=== PATIENT | female | born 1960 | race Caucasian/White ===

== ENCOUNTER → 2021-01-05 10:59 | Outpatient (CLI) | payer BC, SELFPAY ==
[2021-01-05 12:42] LABS: Add Manual Diff / Slide Review NO; Basophils Absolute Auto 0 /uL (0-100); Eosinophils Absolute Auto 300 /uL (0-450); Eosinophils Percent Auto 5.6 % (2-4); Hematocrit 42.7 % (36-46); Hemoglobin 14.6 g/dL (12.0-16.0); Lymphocytes Absolute Auto 2100 /uL (1100-4500); Mean Corpuscular HGB Conc 34.3 % (30-36); Mean Corpuscular Hemoglobin 33.2 PG (26-34); Mean Corpuscular Volume 96.8 fL (80-100); Monocytes Absolute Auto 400 /uL (0-900); Neutrophils Absolute Auto 1900 /uL (1500-7000); Neutrophils Percent Auto 40.4 % (50-75); Platelet Count 181 X10^3/uL (150-400); Red Blood Cell Count 4.41 X10^6/uL (4.0-5.2); Red Cell Distribution Width 12.6 % (11.6-14.8); White Blood Cell Count 4.7 X10^3/uL (4.5-11.0)
[2021-01-05 13:02] LABS: Alanine Aminotransferase 17 IU/L (<35); Albumin 4.4 g/dL (3.5-5.0); Albumin Globulin Ratio 1.5 (1.0-2.8); Alkaline Phosphatase 61 U/L (38-126); Aspartate Aminotransferase 28 IU/L (14-36); Bilirubin Total 0.6 mg/dL (0.2-1.3); Blood Urea Nitrogen 10 mg/dL (7-17); Calcium 9.6 mg/dL (8.4-10.2); Carbon Dioxide 29 mmol/L (22-32); Chloride 104 mmol/L (98-107); Cholesterol 193 mg/dL (140-199); Estimated Glomerular Filt Rate > 60.0 mL/min (>60); Globulin 2.9 g/dL (1.7-4.1); Glucose 94 mg/dL (70-100); HDL Cholesterol 50 mg/dL (40-60); HEMOLYSIS < 15 (0-50); LDL Cholesterol Calculated 130 mg/dL (<100); Potassium 4.1 mmol/L (3.4-5.1); Sodium 140 mmol/L (137-145); Total Protein 7.3 g/dL (6.3-8.2); Triglycerides 65 mg/dL (35-150)
[2021-01-05 13:25] LABS: Free T3, Triiodothyronine Free 4.35 pg/mL (2.77-5.27); Free T4, Direct Thyroxine 1.01 ng/dL (0.78-2.19)
[2021-01-05 13:38] LABS: Thyroid Stimulating Hormone 2.61 uIU/mL (0.47-4.68)
[2021-01-06 05:37] LABS: Thyroid Peroxidase Antibodies 302 IU/mL (0-34)
== END ==
PROVIDERS: PCP Naturopath; Referring Provider Naturopath; Visit Provider Naturopath
DX: Z00.00 Encounter for general adult medical examination without abnormal findings (principal); E03.9 Hypothyroidism, unspecified
CPT/HCPCS: 36415; 80053; 80061; 84439; 84443; 84481; 85025; 86376

== ENCOUNTER 2021-09-13 10:39 | Emergency (ER) | payer BC, SELFPAY ==
[2021-09-13 11:00] VITALS: BP 136/84; PULSE 94; RESP 14; TEMP 36.9; O2SAT 95; BMI 25.1
[2021-09-13 11:02] VITALS: BP 136/84; PULSE 107; O2SAT 100
[2021-09-13 11:29] LABS: Add Manual Diff / Slide Review NO; Basophils Absolute Auto 100 /uL (0-100); Basophils Percent Auto 1.2 % (0-2); Eosinophils Absolute Auto 100 /uL (0-450); Eosinophils Percent Auto 2.1 % (2-4); Hematocrit 43.5 % (36-46); Hemoglobin 15.1 g/dL (12.0-16.0); Lymphocytes Absolute Auto 1600 /uL (1100-4500); Lymphocytes Percent Auto 35.2 % (25-40); Mean Corpuscular HGB Conc 34.8 % (30-36); Mean Corpuscular Hemoglobin 33.5 PG (26-34); Mean Corpuscular Volume 96.1 fL (80-100); Monocytes Absolute Auto 500 /uL (0-900); Monocytes Percent Auto 10.9 % (3-14); Neutrophils Absolute Auto 2300 /uL (1500-7000); Neutrophils Percent Auto 50.6 % (50-75); Platelet Count 197 X10^3/uL (150-400); Red Blood Cell Count 4.52 X10^6/uL (4.0-5.2); Red Cell Distribution Width 12.6 % (11.6-14.8); White Blood Cell Count 4.5 X10^3/uL (4.5-11.0)
[2021-09-13 11:59] LABS: Alanine Aminotransferase 15 IU/L (<35); Albumin 4.6 g/dL (3.5-5.0); Albumin Globulin Ratio 1.4 (1.0-2.8); Alkaline Phosphatase 58 U/L (38-126); Aspartate Aminotransferase 32 IU/L (14-36); BUN Creatinine Ratio 18.4 (6-22); Bilirubin Total 0.9 mg/dL (0.2-1.3); Blood Urea Nitrogen 14 mg/dL (7-17); Calcium 9.9 mg/dL (8.4-10.2); Carbon Dioxide 30 mmol/L (22-32); Chloride 101 mmol/L (98-107); Estimated Glomerular Filt Rate > 60.0 mL/min (>60); Globulin 3.2 g/dL (1.7-4.1); Glucose 98 mg/dL (70-100); HEMOLYSIS < 15 (0-50); Lipase 165 U/L (23-300); Potassium 3.6 mmol/L (3.4-5.1); Sodium 139 mmol/L (137-145); Total Protein 7.8 g/dL (6.3-8.2)
[2021-09-13 12:24] VITALS: BP 127/76; PULSE 89; O2SAT 100
[2021-09-13 12:25] VITALS: BP 127/76; PULSE 89; O2SAT 100
--- NOTE | 2021-09-13 12:51 | DI.US.S_ITS ---
PROCEDURE: US ABDOMEN LIMITED INDICATIONS: RULE OUT CHOLECYSTITIS TECHNIQUE: Real-time scanning was performed of the abdominal and retroperitoneal organs, with image documentation. COMPARISON: None. FINDINGS: Liver: Increased echogenicity, compatible hepatic steatosis. No mass is appreciated. Gallbladder: No gallbladder wall thickening or pericholecystic fluid. Multiple shadowing gallstones are seen. Biliary ducts: Intrahepatic bile ducts are non-dilated. Extrahepatic bile duct caliber measures 4.7 mm. Normal is 6-7 mm or less in diameter, or 10 mm or less post-cholecystectomy. Pancreas: Visualized portions of the pancreas are sonographically normal. IMPRESSION: 1. Cholelithiasis. Dictated by: Germán Baer M.D. on 09/13/2021 at 13:29 Approved by: Germán Baer M.D. on 09/13/2021 at 13:33
--- NOTE | 2021-09-13 12:52 | ED.ABDPAIN ---
HPI - Abdominal Pain <Nataliia Callejas PA-C - Last Filed: 09/13/21 15:06> General Chief Complaint: Abdominal Pain Stated Complaint: gall bladder Time Seen by Provider: 09/13/21 11:01 Source: patient Mode of arrival: Ambulatory Limitations: no limitations History of Present Illness HPI narrative: 61-year-old female with past medical history Myesha's presents to the ED with 1 week of right upper quadrant pain. Patient states she has a history of gallbladder issues, has had several episodes of colic that resolve spontaneously. Patient states she has not had any imaging hand a formal diagnosis of the issue. Patient states that 1 week ago, she experienced 10/10 abdominal colic, mainly in the right upper quadrant, sometimes radiating down the right lower quadrant and groin area, and sometimes also up to her right shoulder blade. Patient endorses some chills, nausea. Patient denies fever, chest pain, shortness of breath, vomiting, flank pain, dysuria, lightheadedness, dizziness, syncope. Patient denies hematochezia, melena. In the ED, patient reports that her pain has subsided to 0/10. Related Data Allergies Allergy/AdvReac Type Severity Reaction Status Date / Time amoxicillin Allergy Verified 09/13/21 11:15 Review of Systems <Nataliia Callejas PA-C - Last Filed: 09/13/21 15:06> Review of Systems ROS Unobtainable: All systems reviewed & are unremarkable except as noted in HPI and below Constitutional Constitutional: Reports chills, Denies fatigue, Denies fever(s), Denies frequent falls, Denies lethargy and Denies weakness Eyes Eyes: Denies change in vision, Denies eye discharge, Denies irritation and Denies loss of vision ENT Ears, Nose, Mouth, and Throat: Denies change in voice, Denies dizziness, Denies neck pain, Denies sore throat and Denies throat swelling Cardiovascular Cardiovascular: Denies chest pain, Denies irregular heart rhythm, Denies lightheadedness, Denies palpitations, Denies dyspnea, Denies dyspnea on exertion and Denies orthopnea Respiratory Respiratory: Denies cough, Denies dyspnea, Denies dyspnea on exertion and Denies wheezing Gastrointestinal Gastrointestinal: Reports abdominal pain, Denies change in bowel habits, Denies diarrhea, Reports nausea and Denies vomiting Genitourinary Genitourinary: Denies hematuria, Denies flank pain, Denies urinary incontinence and Denies urinary urgency Musculoskeletal Musculoskeletal: Denies back pain, Denies muscle weakness, Denies neck pain, Denies numbness and Denies tingling Integumentary/Breasts Skin/Breast: Denies pruritus, Denies erythema, Denies rash and Denies wounds Neurologic Neurologic: Denies behavioral changes, Denies confusion, Denies dizziness, Denies frequent falls, Denies loss of vision, Denies numbness, Denies tingling and Denies weakness Psychiatric Psychiatric: Denies anxiety, Denies behavioral changes, Denies confusion, Denies depression, Denies homicidal ideation and Denies suicidal ideation Endocrine Endocrine: Denies fatigue, Denies flushing and Denies palpitations Hematologic/Lymphatic Hematologic/Lymphatic: Denies easy bruising Allergic/Immunologic Allergic/Immunologic: Denies urticaria, Denies throat swelling and Denies wheezing Patient History <Nataliia Callejas PA-C - Last Filed: 09/13/21 15:06> Social History Smoking Status: Never smoker Smoking Status: Never smoker alcohol intake frequency: holidays/special occasions only Substance Use Type: does not use Exam <Nataliia Callejas PA-C - Last Filed: 09/13/21 15:06> Initial Vital Signs Initial Vital Signs: Vital Signs Temperature 98.4 F 09/13/21 11:00 Pulse Rate 94 H 09/13/21 11:00 Respiratory Rate 14 09/13/21 11:00 Blood Pressure 136/84 09/13/21 11:00 Pulse Oximetry 95 09/13/21 11:00 Const General: cooperative and healthy appearing [facility] Head: normal to inspection Ears: hearing grossly normal bilaterally Nose: external nose normal Mouth: oral mucosae normal Eyes General: appearance normal, both eyes and all related structures Neck Neck: normal visual inspection Chest Chest: normal inspection of the chest Resp Effort & Inspection: normal respiratory effort Auscultation: clear to auscultation bilaterally Cardio Rate: regular rate Rhythm: regular rhythm GI Palpation: soft Other: Abdomen is soft, nondistended. Right upper quadrant exquisitely tender to touch. Patient is guarding. No CVA tenderness. No rash, bruising noted. General: No CVA tenderness Skin General: no rashes or lesions noted Neuro General: patient alert, patient awake and patient oriented x3 <Umu Khalil MD - Last Filed: 09/13/21 16:22> Initial Vital Signs Initial Vital Signs: Vital Signs Temperature 98.4 F 09/13/21 11:00 Pulse Rate 94 H 09/13/21 11:00 Respiratory Rate 14 09/13/21 11:00 Blood Pressure 136/84 09/13/21 11:00 Pulse Oximetry 95 09/13/21 11:00 Course <Nataliia Callejas PA-C - Last Filed: 09/13/21 15:06> Course Course Narrative: Labs within normal limits, UA negative. Ultrasound abdomen shows cholelithiasis without cholecystitis. Patient is comfortable in the ED with 0/10 pain. Will discharge home with PCP follow-up, ED return precautions. Orders Ordered: ED Orders 09/13/21 11:10 Complete Blood Count AUTO DIFF Stat Comprehensive Metabolic Panel Stat Lactate (Lactic Acid) Stat Lipase Stat 09/13/21 11:23 EKG-12 Lead Stat 09/13/21 12:51 US abdomen limited Stat Discontinued Medications Ketorolac Tromethamine (Ketorolac 30 Mg/Ml Vial) 15 mg IV NOW ONE Stop: 09/13/21 12:52 Last Admin: 09/13/21 12:58 Dose: 15 mg Documented by: DELROY Vital Signs Vital signs: Vital Signs - 8 hr 09/13/21 11:00 09/13/21 11:02 09/13/21 12:24 Temperature 98.4 F Pulse Rate 94 H 107 H 89 Respiratory Rate 14 Blood Pressure 136/84 136/84 127/76 Pulse Oximetry 95 100 100 09/13/21 12:25 09/13/21 13:30 09/13/21 13:56 Temperature Pulse Rate 89 80 85 Respiratory Rate 16 Blood Pressure 127/76 122/72 133/75 Pulse Oximetry 100 100 100 <Umu Khalil MD - Last Filed: 09/13/21 16:22> Orders Ordered: ED Orders 09/13/21 11:10 Complete Blood Count AUTO DIFF Stat Comprehensive Metabolic Panel Stat Lactate (Lactic Acid) Stat Lipase Stat 09/13/21 11:23 EKG-12 Lead Stat 09/13/21 12:51 US abdomen limited Stat Discontinued Medications Ketorolac Tromethamine (Ketorolac 30 Mg/Ml Vial) 15 mg IV NOW ONE Stop: 09/13/21 12:52 Last Admin: 09/13/21 12:58 Dose: 15 mg Documented by: DELROY Vital Signs Vital signs: Vital Signs - 8 hr 09/13/21 11:00 09/13/21 11:02 09/13/21 12:24 Temperature 98.4 F Pulse Rate 94 H 107 H 89 Respiratory Rate 14 Blood Pressure 136/84 136/84 127/76 Pulse Oximetry 95 100 100 09/13/21 12:25 09/13/21 13:30 09/13/21 13:56 Temperature Pulse Rate 89 80 85 Respiratory Rate 16 Blood Pressure 127/76 122/72 133/75 Pulse Oximetry 100 100 100 MDM - Abdominal Pain <Nataliia Callejas PA-C - Last Filed: 09/13/21 15:06> Lab Data Lab results narrative: Labs within normal limits, UA negative Result diagrams: 09/13/21 11:10 09/13/21 11:10 Labs: Lab Results 09/13/21 09/13/21 09/13/21 Range/Units 11:10 11:10 11:10 WBC 4.5 (4.5-11.0) X10^3/uL RBC 4.52 (4.0-5.2) X10^6/uL Hgb 15.1 (12.0-16.0) g/dL Hct 43.5 (36-46) % MCV 96.1 (80-100) fL MCH 33.5 (26-34) PG MCHC 34.8 (30-36) % RDW 12.6 (11.6-14.8) % Plt Count 197 (150-400) X10^3/uL Neut % (Auto) 50.6 (50-75) % Lymph % (Auto) 35.2 (25-40) % [place] % (Auto) 10.9 (3-14) % Eos % (Auto) 2.1 (2-4) % Baso % (Auto) 1.2 (0-2) % Neut # (Auto) 2300 (8119-7564) /uL Lymph # (Auto) 1600 (5239-0461) /uL [place] # (Auto) 500 (0-900) /uL Eos # (Auto) 100 (0-450) /uL Baso # (Auto) 100 (0-100) /uL Sodium 139 (137-145) mmol/L Potassium 3.6 (3.4-5.1) mmol/L Chloride 101 (98-107) mmol/L Carbon Dioxide 30 (22-32) mmol/L BUN 14 (7-17) mg/dL Creatinine 0.76 (0.52-1.04) mg/dL Estimated GFR > 60.0 (>60) mL/min BUN/Creatinine Ratio 18.4 (6-22) Glucose 98 (70-100) mg/dL Lactate 1.2 (0.7-2.1) mmol/L Calcium 9.9 (8.4-10.2) mg/dL Total Bilirubin 0.9 (0.2-1.3) mg/dL AST 32 (14-36) IU/L ALT 15 (<35) IU/L Alkaline Phosphatase 58 (38-126) U/L Total Protein 7.8 (6.3-8.2) g/dL Albumin 4.6 (3.5-5.0) g/dL Globulin 3.2 (1.7-4.1) g/dL Albumin/Globulin Ratio 1.4 (1.0-2.8) Lipase 165 (23-300) U/L Point of care testing: Urine Dip Bedside Urine Glucose Negative Bedside Urine Bilirubin - Negative Bedside Urine Ketone +/- 5 Urine Specific [place] 1.015 Bedside Urine Occult Blood - Negative Bedside Urine pH 6.0 Bedside Urine Protein - Negative Bedside Urine Urobilinogen - Negative Bedside Urine Nitrite - Negative Bedside Urine Leukocytes - Negative Esterase Imaging Data US - abdomen: Radiologist's Impression: PROCEDURE:? US ABDOMEN LIMITED ? INDICATIONS:? RULE OUT CHOLECYSTITIS ? TECHNIQUE:? Real-time scanning was performed of the abdominal and retroperitoneal organs, with image documentation.? ? COMPARISON:? None. ? FINDINGS:? ? Liver:? Increased echogenicity, compatible hepatic steatosis.? No mass is appreciated. ? Gallbladder:? No gallbladder wall thickening or pericholecystic fluid.? Multiple shadowing gallstones are seen.? ? Biliary ducts:? Intrahepatic bile ducts are non-dilated.? Extrahepatic bile duct caliber measures 4.7 mm.? Normal is 6-7 mm or less in diameter, or 10 mm or less post-cholecystectomy.? ? Pancreas:? Visualized portions of the pancreas are sonographically normal.? ? ? IMPRESSION:? 1. Cholelithiasis. ? ? ? Dictated by: Germán Baer M.D. on 09/13/2021 at 13:29 ? ? Approved by: Germán Baer M.D. on 09/13/2021 at 13:33 ? ECG Data Interpretation: Sinus tachycardia, nonspecific ST abnormality, no axis deviation MDM Narrative Medical decision making narrative: 61-year-old female with past medical history Myesha's presents to the ED with 1 week of right upper quadrant pain. Concern for cholelithiasis versus cholecystitis versus choledocholithiasis. Will order labs, lactate, UA, ultrasound right upper quadrant. Treat pain with Toradol. Will reassess. <Umu Khalil MD - Last Filed: 09/13/21 16:22> Lab Data Labs: Lab Results 09/13/21 09/13/21 09/13/21 Range/Units 11:10 11:10 11:10 WBC 4.5 (4.5-11.0) X10^3/uL RBC 4.52 (4.0-5.2) X10^6/uL Hgb 15.1 (12.0-16.0) g/dL Hct 43.5 (36-46) % MCV 96.1 (80-100) fL MCH 33.5 (26-34) PG MCHC 34.8 (30-36) % RDW 12.6 (11.6-14.8) % Plt Count 197 (150-400) X10^3/uL Neut % (Auto) 50.6 (50-75) % Lymph % (Auto) 35.2 (25-40) % [place] % (Auto) 10.9 (3-14) % Eos % (Auto) 2.1 (2-4) % Baso % (Auto) 1.2 (0-2) % Neut # (Auto) 2300 (5591-7420) /uL Lymph # (Auto) 1600 (5054-8584) /uL [place] # (Auto) 500 (0-900) /uL Eos # (Auto) 100 (0-450) /uL Baso # (Auto) 100 (0-100) /uL Sodium 139 (137-145) mmol/L Potassium 3.6 (3.4-5.1) mmol/L Chloride 101 (98-107) mmol/L Carbon Dioxide 30 (22-32) mmol/L BUN 14 (7-17) mg/dL Creatinine 0.76 (0.52-1.04) mg/dL Estimated GFR > 60.0 (>60) mL/min BUN/Creatinine Ratio 18.4 (6-22) Glucose 98 (70-100) mg/dL Lactate 1.2 (0.7-2.1) mmol/L Calcium 9.9 (8.4-10.2) mg/dL Total Bilirubin 0.9 (0.2-1.3) mg/dL AST 32 (14-36) IU/L ALT 15 (<35) IU/L Alkaline Phosphatase 58 (38-126) U/L Total Protein 7.8 (6.3-8.2) g/dL Albumin 4.6 (3.5-5.0) g/dL Globulin 3.2 (1.7-4.1) g/dL Albumin/Globulin Ratio 1.4 (1.0-2.8) Lipase 165 (23-300) U/L Point of care testing: Urine Dip Bedside Urine Glucose Negative Bedside Urine Bilirubin - Negative Bedside Urine Ketone +/- 5 Urine Specific [place] 1.015 Bedside Urine Occult Blood - Negative Bedside Urine pH 6.0 Bedside Urine Protein - Negative Bedside Urine Urobilinogen - Negative Bedside Urine Nitrite - Negative Bedside Urine Leukocytes - Negative Esterase Discharge Plan Departure Patient Disposition: Home Clinical Impression: Cholelithiasis Instructions: DI for Gallstones Activity Restrictions/Additional Instructions: You were evaluated in the ED today for abdominal pain. Your labs were normal. Your ultrasound shows multiple gallstones in the gallbladder, however your gallbladder is not inflamed and the stones are not obstructive. You may manage the pain with ibuprofen. Return to the ED if you experience worsening symptoms, fever, chills, nausea, vomiting. You may follow-up with your PCP as soon as possible. Referrals: Odalis Wetzel ND [Primary Care Provider] - <Umu Khalil MD - Last Filed: 09/13/21 16:22> Cosign ED Attending [place] Attestation: I was immediately available in the department for consultation throughout this patient's visit. I agree with documentation as above. Umu Khalil MD
[2021-09-13] MEDS: KETOROLAC 30 MG/ML VIAL 15 MG IV (12:58)
[2021-09-13 13:29] LABS: Lactate (Lactic Acid) 1.2 mmol/L (0.7-2.1)
[2021-09-13 13:30] VITALS: BP 122/72; PULSE 80; O2SAT 100
[2021-09-13 13:56] VITALS: BP 133/75; PULSE 85; RESP 16; O2SAT 100
== END 2021-09-13 14:06 | disposition home or self-care (01) ==
PROVIDERS: Emergency Medicine; Emergency Provider Student in an Organized Health Care Education/Training Program; PCP Naturopath
DX: K80.20 Calculus of gallbladder without cholecystitis without obstruction (principal); R00.0 Tachycardia, unspecified
CPT/HCPCS: 36415; 76705; 80053; 81003; 83605; 83690; 85025; 93005; 93010; 96374; 99284; J1885

== ENCOUNTER 2022-07-27 12:59 | Emergency (ER) | payer BC, SELFPAY ==
[2022-07-27] VITALS (8 sets, daily range): BP systolic 121–140; BP diastolic 71–90; PULSE 81–108; RESP 18; TEMP 36.9; O2SAT 94–100; BMI 25.0
[2022-07-27 13:16] LABS: Add Manual Diff / Slide Review NO; Basophils Absolute Auto 0 /uL (0-100); Basophils Percent Auto 0.2 % (0-2); Eosinophils Absolute Auto 100 /uL (0-450); Eosinophils Percent Auto 1.1 % (2-4); Hematocrit 42.8 % (36-46); Hemoglobin 14.7 g/dL (12.0-16.0); Lymphocytes Absolute Auto 1900 /uL (1100-4500); Lymphocytes Percent Auto 18.3 % (25-40); Mean Corpuscular HGB Conc 34.2 % (30-36); Mean Corpuscular Hemoglobin 33.4 PG (26-34); Mean Corpuscular Volume 97.6 fL (80-100); Monocytes Absolute Auto 1000 /uL (0-900); Monocytes Percent Auto 9.8 % (3-14); Neutrophils Absolute Auto 7100 /uL (1500-7000); Neutrophils Percent Auto 70.6 % (50-75); Platelet Count 185 X10^3/uL (150-400); Red Blood Cell Count 4.39 X10^6/uL (4.0-5.2); Red Cell Distribution Width 12.8 % (11.6-14.8); White Blood Cell Count 10.1 X10^3/uL (4.5-11.0)
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
--- NOTE | 2022-07-27 13:27 | DI.US.S_ITS ---
PROCEDURE: US ABDOMEN LIMITED INDICATIONS: RUQ PAIN;KNOWN GALLSTONES TECHNIQUE: Real-time focused scanning was performed of the abdomen, with image documentation. COMPARISON: [facility], , US ABDOMEN LIMITED, 09/13/2021, 13:11. FINDINGS: Liver length of 13.5 centimeters. No definite hepatic echotexture abnormality. Multiple tiny non-obstructing gallstones present. No gallbladder wall thickening or sonographic Oseguera sign. No biliary ductal dilation demonstrated. Extrahepatic duct measures 6 millimeters. Visualized pancreas is unremarkable sonographically. IMPRESSION: Cholelithiasis without evidence of acute cholecystitis. Dictated by: Eric Cota M.D. on 07/27/2022 at 14:18 Approved by: Eric Cota M.D. on 07/27/2022 at 14:21
[2022-07-27 13:37] LABS: Alanine Aminotransferase 108 IU/L (<35); Albumin 4.3 g/dL (3.5-5.0); Albumin Globulin Ratio 1.3 (1.0-2.8); Alkaline Phosphatase 69 U/L (38-126); Aspartate Aminotransferase 281 IU/L (14-36); BUN Creatinine Ratio 19.8 (6-22); Bilirubin Total 1.5 mg/dL (0.2-1.3); Blood Urea Nitrogen 16 mg/dL (7-17); Calcium 9.1 mg/dL (8.4-10.2); Carbon Dioxide 29 mmol/L (22-32); Chloride 103 mmol/L (98-107); Creatine Kinase 42 U/L (30-135); Estimated Glomerular Filt Rate > 60 mL/min (>60); Globulin 3.3 g/dL (1.7-4.1); Glucose 107 mg/dL (80-110); Lipase 225 U/L (23-300); Potassium 4.3 mmol/L (3.4-5.1); Sodium 138 mmol/L (137-145); Total Protein 7.6 g/dL (6.3-8.2)
[2022-07-27 13:38] LABS: HEMOLYSIS 103 (0-50); Lactate (Lactic Acid) 1.1 mmol/L (0.7-2.1)
[2022-07-27 13:43] LABS: Troponin I < 0.012 ng/mL (0.01-0.034)
[2022-07-27] MEDS: SODIUM CHLORIDE 0.9% 1,000 ML 150 ML IV (13:43)
[2022-07-27 16:16] LABS: Alanine Aminotransferase 174 IU/L (<35); Albumin 4.2 g/dL (3.5-5.0); Albumin Globulin Ratio 1.4 (1.0-2.8); Alkaline Phosphatase 77 U/L (38-126); Aspartate Aminotransferase 403 IU/L (14-36); BUN Creatinine Ratio 17.7 (6-22); Bilirubin Total 0.7 mg/dL (0.2-1.3); Blood Urea Nitrogen 14 mg/dL (7-17); Calcium 9.1 mg/dL (8.4-10.2); Carbon Dioxide 27 mmol/L (22-32); Chloride 104 mmol/L (98-107); Estimated Glomerular Filt Rate > 60 mL/min (>60); Globulin 3.1 g/dL (1.7-4.1); Glucose 113 mg/dL (80-110); HEMOLYSIS 18 (0-50); Potassium 3.8 mmol/L (3.4-5.1); Sodium 139 mmol/L (137-145); Total Protein 7.3 g/dL (6.3-8.2)
== END 2022-07-27 17:05 | disposition home or self-care (01) ==
PROVIDERS: Emergency Provider Emergency Medicine; PCP Naturopath
DX: K80.20 Calculus of gallbladder without cholecystitis without obstruction (principal); R10.13 Epigastric pain
CPT/HCPCS: 36415; 76705; 80053; 82550; 83605; 83690; 84484; 85025; 93005; 93010; 99284

== ENCOUNTER → 2022-11-02 10:42 | Outpatient (CLI) | payer BC, SELFPAY ==
[2022-11-02 11:23] LABS: Add Manual Diff / Slide Review NO; Basophils Absolute Auto 0 /uL (0-100); Basophils Percent Auto 0.7 % (0-2); Eosinophils Absolute Auto 200 /uL (0-450); Eosinophils Percent Auto 3.1 % (2-4); Hematocrit 41.5 % (36-46); Hemoglobin 14.3 g/dL (12.0-16.0); Lymphocytes Absolute Auto 1800 /uL (1100-4500); Lymphocytes Percent Auto 34.9 % (25-40); Mean Corpuscular HGB Conc 34.5 % (30-36); Mean Corpuscular Hemoglobin 33.9 PG (26-34); Mean Corpuscular Volume 98.4 fL (80-100); Monocytes Absolute Auto 400 /uL (0-900); Monocytes Percent Auto 8.5 % (3-14); Neutrophils Absolute Auto 2700 /uL (1500-7000); Neutrophils Percent Auto 52.8 % (50-75); Platelet Count 169 X10^3/uL (150-400); Red Blood Cell Count 4.22 X10^6/uL (4.0-5.2); Red Cell Distribution Width 12.5 % (11.6-14.8); White Blood Cell Count 5.1 X10^3/uL (4.5-11.0)
[2022-11-02 11:33] LABS: Alanine Aminotransferase 35 IU/L (<35); Albumin 4.1 g/dL (3.5-5.0); Albumin Globulin Ratio 1.4 (1.0-2.8); Alkaline Phosphatase 65 U/L (38-126); Aspartate Aminotransferase 27 IU/L (14-36); Bilirubin Total 0.6 mg/dL (0.2-1.3); Blood Urea Nitrogen 8 mg/dL (7-17); Calcium 9.1 mg/dL (8.4-10.2); Carbon Dioxide 29 mmol/L (22-32); Chloride 101 mmol/L (98-107); Estimated Glomerular Filt Rate > 60 mL/min (>60); Glucose 94 mg/dL (80-110); HEMOLYSIS < 15 (0-50); Lipase 396 U/L (23-300); Sodium 139 mmol/L (137-145); Total Protein 7.1 g/dL (6.3-8.2)
== END ==
PROVIDERS: PCP Naturopath; Referring Provider Surgery; Visit Provider Surgery
DX: K80.20 Calculus of gallbladder without cholecystitis without obstruction (principal); K82.9 Disease of gallbladder, unspecified
CPT/HCPCS: 36415; 80053; 83690; 85025; 99213

== ENCOUNTER → 2023-11-08 14:02 | Outpatient (CLI) | payer BC, SELFPAY ==
[2023-11-08 14:29] LABS: Add Manual Diff / Slide Review NO; Basophils Absolute Auto 100 /uL (0-100); Eosinophils Absolute Auto 200 /uL (0-450); Eosinophils Percent Auto 3.2 % (2-4); Hematocrit 42.3 % (36-46); Hemoglobin 14.6 g/dL (12.0-16.0); Lymphocytes Absolute Auto 2200 /uL (1100-4500); Lymphocytes Percent Auto 40.2 % (25-40); Mean Corpuscular HGB Conc 34.7 % (30-36); Mean Corpuscular Hemoglobin 33.6 PG (26-34); Mean Corpuscular Volume 97.1 fL (80-100); Monocytes Absolute Auto 400 /uL (0-900); Monocytes Percent Auto 7.3 % (3-14); Neutrophils Absolute Auto 2700 /uL (1500-7000); Neutrophils Percent Auto 48.3 % (50-75); Platelet Count 198 X10^3/uL (150-400); Red Blood Cell Count 4.35 X10^6/uL (4.0-5.2); Red Cell Distribution Width 12.4 % (11.6-14.8); White Blood Cell Count 5.5 X10^3/uL (4.5-11.0)
[2023-11-08 14:53] LABS: Alanine Aminotransferase 18 IU/L (<35); Albumin 4.1 g/dL (3.5-5.0); Albumin Globulin Ratio 1.2 (1.0-2.8); Alkaline Phosphatase 62 U/L (38-126); Aspartate Aminotransferase 28 IU/L (14-36); BUN Creatinine Ratio 16.3 (6-22); Bilirubin Total 0.9 mg/dL (0.2-1.3); Blood Urea Nitrogen 13 mg/dL (7-17); Calcium 9.1 mg/dL (8.4-10.2); Carbon Dioxide 28 mmol/L (22-32); Chloride 104 mmol/L (98-107); Estimated Glomerular Filt Rate > 60 mL/min (>60); Globulin 3.3 g/dL (1.7-4.1); Glucose 96 mg/dL (80-110); HEMOLYSIS < 15 (0-50); Lipase 131 U/L (23-300); Potassium 3.9 mmol/L (3.4-5.1); Sodium 138 mmol/L (137-145); Total Protein 7.4 g/dL (6.3-8.2)
== END ==
PROVIDERS: PCP Naturopath; Referring Provider Surgery; Visit Provider Surgery
DX: K80.20 Calculus of gallbladder without cholecystitis without obstruction (principal)
CPT/HCPCS: 36415; 80053; 83690; 85025

== ENCOUNTER → 2024-02-13 13:52 | Outpatient (CLI) | payer BC, SELFPAY ==
[2024-02-13 14:51] LABS: Alanine Aminotransferase 18 IU/L (<35); Albumin 4.3 g/dL (3.5-5.0); Albumin Globulin Ratio 1.7 (1.0-2.8); Alkaline Phosphatase 53 U/L (38-126); Aspartate Aminotransferase 29 IU/L (14-36); BUN Creatinine Ratio 12.6 (6-22); Bilirubin Total 0.6 mg/dL (0.2-1.3); Blood Urea Nitrogen 11 mg/dL (7-17); Calcium 9.1 mg/dL (8.4-10.2); Carbon Dioxide 29 mmol/L (22-32); Chloride 106 mmol/L (98-107); Cholesterol 195 mg/dL (140-199); Estimated Glomerular Filt Rate > 60 mL/min (>60); Globulin 2.6 g/dL (1.7-4.1); Glucose 94 mg/dL (80-110); HDL Cholesterol 55 mg/dL (40-60); HEMOLYSIS < 15 (0-50); LDL Cholesterol Calculated 119 mg/dL (<100); Sodium 139 mmol/L (137-145); Total Protein 6.9 g/dL (6.3-8.2); Triglycerides 105 mg/dL (35-150)
[2024-02-13 15:07] LABS: Free T3, Triiodothyronine Free 3.96 pg/mL (2.77-5.27); Free T4, Direct Thyroxine 0.94 ng/dL (0.78-2.19)
[2024-02-13 15:20] LABS: Thyroid Stimulating Hormone 2.08 uIU/mL (0.47-4.68)
== END ==
PROVIDERS: PCP Naturopath; Referring Provider Naturopath; Visit Provider Naturopath
DX: Z00.00 Encounter for general adult medical examination without abnormal findings (principal); E06.3 Autoimmune thyroiditis
CPT/HCPCS: 36415; 80053; 80061; 84439; 84443; 84481; 86376

== ENCOUNTER 2025-09-04 13:31 | Emergency (ER) | payer BC, SELFPAY ==
[2025-09-04 13:52] VITALS: BP 136/77; PULSE 98; RESP 15; TEMP 36.8; O2SAT 99; BMI 25.7
--- NOTE | 2025-09-04 14:24 | DI.US.S_ITS ---
PROCEDURE: US ABDOMEN LIMITED INDICATIONS: RUQ PAIN; KNOWN GALLSTONES TECHNIQUE: Real-time focused scanning was performed of the abdomen, with image documentation. COMPARISON: (Prior imaging is not available for review from the archive at the time of this dictation.) FINDINGS: The liver is normal in size and demonstrates no suspicious lesions. Numerous tiny mobile gallstones are seen. The gallbladder wall is not thickened, measuring 3 mm or less. No specific pericholecystic fluid is seen. The sonographic Oseguera sign is negative. There is no biliary dilatation, the common bile duct measures 5 mm. No significant pancreatic abnormality is seen on these images. IMPRESSION: Numerous tiny mobile gallstones are seen. No additional sonographic signs of cholecystitis are seen. No biliary dilatation. Dictated by: Omar Loyola M.D. on 09/04/2025 at 14:49 Approved by: Omar Loyola M.D. on 09/04/2025 at 14:51
[2025-09-04 15:30] VITALS: BP 112/61; PULSE 93; RESP 16; O2SAT 99
--- NOTE | 2025-09-04 15:53 | ED.ABDPAIN ---
HPI - Abdominal Pain General Chief Complaint: Abdominal Pain Stated Complaint: possible gall stone Time Seen by Provider: 09/04/25 14:14 Source: patient Mode of arrival: Ambulatory History of Present Illness HPI narrative: Patient is a 65-year-old female with 2 episodes of severe abdominal pain and vomiting that began this week. Past medical history significant for cholelithiasis, she has been unable to schedule surgery. She reports she has felt similar pain in the past and describes it as colicky, she believes that she has passed the stone and her symptoms has largely resolved today however given that her symptoms had persisted for a week she presented to the ER for evaluation. Currently she is not in any pain, no fevers, chills, no recent nausea or vomiting. No junior colored stool. Related Data Home Medications ?Medication ?Instructions ?Recorded ?Confirmed Bacillus coagulans 800 million 1 cell PO DAILY 11/02/22 11/08/23 cell tablet (Digestive Advantage Probiotics-Prebiotic) lecithin 1,200 mg capsule 1,200 mg PO DAILY 11/02/22 11/08/23 quercetin 500 mg capsule mg PO 11/08/23 11/08/23 vitamin E mixed 400 unit capsule unit PO 11/08/23 11/08/23 Allergies Allergy/AdvReac Type Severity Reaction Status Date / Time amoxicillin Allergy Rash Verified 11/08/23 13:08 Penicillins Allergy Rash, Hives Verified 11/08/23 13:08 Review of Systems Review of Systems Narrative: See HPI. Patient History Medical History No blood products Headache, migraine Delia infection Myesha's disease Surgical History No history of previous surgery Social History household members: spouse alcohol intake: current alcohol intake frequency: 0-2 drinks per day Exam Initial Vital Signs Initial Vital Signs: Vital Signs Temperature 98.3 F 09/04/25 13:52 Pulse Rate 98 H 09/04/25 13:52 Respiratory Rate 15 09/04/25 13:52 Blood Pressure 136/77 09/04/25 13:52 Pulse Oximetry 99 09/04/25 13:52 Oxygen Delivery Method Room Air 09/04/25 13:52 Vitals reviewed and within normal range. Const Other: Well-developed, well-nourished in no acute distress. Resp Other: Normal work of effort. Auscultation normal in all lung mcnair. Cardio Other: Regular rate without any murmurs, rubs, or gallops. GI Other: Soft, nondistended, nontender palpation in all quadrants to include right upper quadrant. No CVA tenderness bilaterally. Skin Other: No rashes. Extrem Other: No peripheral edema. Course Orders Ordered: ED Orders 09/04/25 14:24 US abdomen limited Stat CBC Auto Diff [Complete Blood Count AUTO DIFF] Stat CMP [Comprehensive Metabolic Panel] Stat Reevaluation(s) Reevaluation #1: [id number] discussed results with patient Vital Signs Vital signs: Vital Signs - 8 hr 09/04/25 13:52 09/04/25 15:30 09/04/25 16:00 Temperature 98.3 F Pulse Rate 98 H 93 H 83 Respiratory Rate 15 16 16 Blood Pressure 136/77 112/61 117/75 Pulse Oximetry 99 99 98 Oxygen Delivery Method Room Air 09/04/25 16:30 Temperature Pulse Rate 89 Respiratory Rate 17 Blood Pressure 114/78 Pulse Oximetry 97 Oxygen Delivery Method MDM - Abdominal Pain Medical Records Attestation: I reviewed the patient's medical records. Lab Data 09/04/25 16:51 09/04/25 16:51 Labs: Lab Results 09/04/25 Range/Units 16:51 WBC 13.1 H (4.5-11.0) X10^3/uL RBC 4.41 (4.0-5.2) X10^6/uL Hgb 15.2 (12.0-16.0) g/dL Hct 43.2 (36-46) % MCV 98.0 (80-100) fL MCH 34.5 H (26-34) PG MCHC 35.2 (30-36) % RDW 12.4 (11.6-14.8) % Plt Count 190 (150-400) X10^3/uL Neut % (Auto) 77.3 H (50-75) % Lymph % (Auto) 12.8 L (25-40) % Dare % (Auto) 8.8 (3-14) % Eos % (Auto) 0.9 L (2-4) % Baso % (Auto) 0.2 (0-2) % Neut # (Auto) 24601 H (5470-6855) /uL Lymph # (Auto) 1700 (1448-8728) /uL Dare # (Auto) 1100 H (0-900) /uL Eos # (Auto) 100 (0-450) /uL Baso # (Auto) 0 (0-100) /uL Sodium 137 (137-145) mmol/L Potassium 3.9 (3.4-5.1) mmol/L Chloride 98 (98-107) mmol/L Carbon Dioxide 27 (22-32) mmol/L BUN 9 (7-17) mg/dL Creatinine 0.66 (0.52-1.04) mg/dL Estimated GFR > 60 (>60) mL/min BUN/Creatinine Ratio 13.6 (6-22) Glucose 109 H (70-99) mg/dL Calcium 9.3 (8.4-10.2) mg/dL Total Bilirubin 1.4 H (0.2-1.3) mg/dL AST 32 (14-36) IU/L ALT 24 (<35) IU/L Alkaline Phosphatase 89 (38-126) U/L Total Protein 8.0 (6.3-8.2) g/dL Albumin 4.4 (3.5-5.0) g/dL Globulin 3.6 (1.7-4.1) g/dL Albumin/Globulin Ratio 1.2 (1.0-2.8) Imaging Data US - abdomen: My Impression: Gallstones noted at the body of the gallbladder. No stones noted at the neck. No gallbladder wall thickening, no pericholecystic fluid, common bile duct 5 mm. Radiologist's Impression: FINDINGS: The liver is normal in size and demonstrates no suspicious lesions. Numerous tiny mobile gallstones are seen. The gallbladder wall is not thickened, measuring 3 mm or less. No specific pericholecystic fluid is seen. The sonographic Oseguera sign is negative. There is no biliary dilatation, the common bile duct measures 5 mm. No significant pancreatic abnormality is seen on these images. IMPRESSION: Numerous tiny mobile gallstones are seen. No additional sonographic signs of cholecystitis are seen. [facility] Narrative Medical decision making narrative: Patient is a 65-year-old female with a history of cholelithiasis presents with 2 episodes of severe abdominal pain and vomiting that began this week. Patient arrives hemodynamically normal in no acute distress with no pain or nausea. Differential includes: Symptomatic cholelithiasis, choledocholithiasis, hepatitis, pancreatitis, other. Right upper ultrasound revealed numerous tiny gallstones with no sonographic signs of cholecystitis and no biliary dilatation. Patient stated that she needed to leave in order to make the last ferry back to the [place]. Her labs did not result on discharge. 1651: Labs reviewed mild leukocytosis (WBC 13.1) with left shift, no anemia, no thrombocytopenia. Chemistry with elevated bilirubin at 1.4. No transaminitis. All other electrolytes were normal. Given these results, bilirubin mildly elevated with upper limit of normal at 1.3. Patient was hemodynamically normal without fever, significant leukocytosis, pain was controlled and she did not have any nausea or vomiting. Given these findings, patient was given referral to general surgery for outpatient management. At discharge, remained hemodynamically normal. She declined any medications for analgesia or nausea. Discharge Plan Departure Patient Disposition: Home Clinical Impression: Gallstones Abdominal pain Qualifiers: Abdominal location: right upper quadrant Qualified Code(s): R10.11 - Right upper quadrant pain Instructions: DI for Gallstones Activity Restrictions/Additional Instructions: No activity restrictions. I recommend a low-fat diet to decrease the episodes of gallstone pain. You will be contacted on your laboratory results. You have been given a referral for outpatient management of your goal disease. Please return to the ER if you develop any severe abdominal pain, nausea, or vomiting. Prescriptions: No Action Digestive Advantage Probio-Pre 800 million cell tablet 1 cell PO DAILY lecithin 1,200 mg capsule 1,200 mg PO DAILY Rx Instructions: give with meal/snack vitamin E mixed 400 unit capsule PO quercetin 500 mg capsule PO Referrals: Leif Allen MD [Physician, General Surgery] Referral Note: 62-year-old female with chronic cholelithiasis and intermittent and passing of small stones. Was given referral previously however could not follow through surgery. Clinical Impression: [employer] Odalis Wetzel ND [Primary Care Provider, Naturopathy] Stand Alone Forms: Patient Portal/API
[2025-09-04 16:00] VITALS: BP 117/75; PULSE 83; RESP 16; O2SAT 98
[2025-09-04 16:30] VITALS: BP 114/78; PULSE 89; RESP 17; O2SAT 97
[2025-09-04 16:55] LABS: Add Manual Diff / Slide Review NO; Hematocrit 43.2 % (36-46); Hemoglobin 15.2 g/dL (12.0-16.0); Lymphocytes Absolute Auto 1700 /uL (1100-4500); Mean Corpuscular HGB Conc 35.2 % (30-36); Mean Corpuscular Hemoglobin 34.5 PG (26-34); Mean Corpuscular Volume 98.0 fL (80-100); Platelet Count 190 X10^3/uL (150-400)
[2025-09-04 17:07] LABS: Alanine Aminotransferase 24 IU/L (<35); Albumin 4.4 g/dL (3.5-5.0); Albumin Globulin Ratio 1.2 (1.0-2.8); Alkaline Phosphatase 89 U/L (38-126); Blood Urea Nitrogen 9 mg/dL (7-17); Calcium 9.3 mg/dL (8.4-10.2); Carbon Dioxide 27 mmol/L (22-32); Chloride 98 mmol/L (98-107); Estimated Glomerular Filt Rate > 60 mL/min (>60); Globulin 3.6 g/dL (1.7-4.1); Glucose 109 mg/dL (70-99); HEMOLYSIS 62 (0-50); Potassium 3.9 mmol/L (3.4-5.1); Sodium 137 mmol/L (137-145); Total Protein 8.0 g/dL (6.3-8.2)
== END 2025-09-04 17:12 | disposition home or self-care (01) ==
PROVIDERS: Emergency Provider Student in an Organized Health Care Education/Training Program; PCP Naturopath
DX: K80.20 Calculus of gallbladder without cholecystitis without obstruction (principal); R10.11 Right upper quadrant pain
CPT/HCPCS: 76705; 80053; 85025; 99281; 99284